=== PATIENT | male | born 1975 | race American Indian/Alaskan Native ===

== ENCOUNTER 2018-07-12 12:44 | Emergency (ER) | payer SELFPAY ==
[2018-07-12 13:20] VITALS: BP 156/96
--- NOTE | 2018-07-12 13:20 | Emergency Department Report ---
Blank Doc - Documentation Documentation: 42 y o male presents to ED cc of left knee pain and swelling worsening with mov emet x over a year Was seen at [facility] last year [facility] HTN: not on medication, ran out knee xray [facility] eval
--- NOTE | 2018-07-12 14:18 | Emergency Department Report ---
ED Extremity Problem HPI - General Chief complaint: Extremity Problem,Nontraumatic Stated complaint: (L) KNEE PAIN Time Seen by Provider: 07/12/18 13:17 Source: family Mode of arrival: Ambulatory Limitations: No Limitations - History of Present Illness Initial comments: 42-year-old -[place] male presents to the emergency room complaint of left knee pain and swelling 6-7 years. Patient reports that in the last year he has gotten worse. Patient reports that he is he follows up at [facility]. Patient also reports a history of hypertension and is draining out of his medication but not able to identify what medication he is on. Patient reports that he gets his medications [facility]. Patient denies any recent traumas no chest pain or shortness of breathing no headaches. Onset/Timin -: year(s) Location: left, knee History of Same: Yes -: Yes arthralgia Radiation: none Severity scale (0 -10): 10 Quality: aching Consistency: intermittent Improves with: medication Worsens with: weight bearing Associated Symptoms: denies other symptoms. denies: chest pain, shortness of breath, fever - Related Data Allergies Allergy/AdvReac Type Severity Reaction Status Date / Time No Known Allergies Allergy Verified 07/12/18 12:46 ED Review of Systems ROS: Stated complaint: (L) KNEE PAIN Other details as noted in HPI Comment: All other systems reviewed and negative ED Past Medical Hx - Past Medical History Previous Medical History?: Yes Hx Hypertension: Yes - Surgical History Past Surgical History?: No - Social History Smoking Status: Never Smoker Substance Use Type: None ED Physical Exam - General Limitations: No Limitations General appearance: alert, in no apparent distress - Head Head exam: Present: atraumatic, normocephalic - Eye Eye exam: Present: normal appearance - ENT ENT exam: Present: mucous membranes moist - Neck Neck exam: Present: normal inspection - Respiratory Respiratory exam: Present: normal lung sounds bilaterally. Absent: respiratory distress - Cardiovascular Cardiovascular Exam: Present: regular rate, normal rhythm. Absent: systolic murmur, diastolic murmur, rubs, gallop - Expanded Lower Extremity Exam Left Hip exam: Present: full ROM. Absent: tenderness Upper Leg exam: Present: normal inspection, full ROM. Absent: tenderness Knee exam: Present: full ROM, swelling. Absent: tenderness, abrasion, laceration, deformity, erythema Lower Leg exam: Present: normal inspection, full ROM Foot/Toe exam: Present: full ROM, swelling Neuro vascular tendon exam: Present: no vascular compromise - Neurological Exam Neurological exam: Present: alert, oriented X3 - Psychiatric Psychiatric exam: Present: normal affect, normal mood - Skin Skin exam: Present: warm, dry, intact, normal color. Absent: rash ED Course Vital Signs 07/12/18 13:17 Temperature 98.3 F Pulse Rate 64 Respiratory 16 Rate Blood Pressure 156/96 O2 Sat by Pulse 98 Oximetry ED Medical Decision Making - Medical Decision Making 42-year-old male comes in for chronic left knee pain and swelling for 6-7 years. Patient usually follows up with bradycardia. Patient has not taken anything for pain. Discussed the patient to follow up with orthopedic provider or primary care provider for pain management. Critical care attestation.: If time is entered above; I have spent that time in minutes in the direct care of this critically ill patient, excluding procedure time. ED Disposition Clinical Impression: Chronic pain of left knee Hypertension Qualifiers: Hypertension type: essential hypertension Qualified Code(s): I10 - Essential (primary) hypertension Disposition: DC- TO HOME OR SELFCARE Is pt being admited?: No Does the pt Need Aspirin: No Condition: Stable Instructions: Hypertension (ED), Arthralgia (ED) Additional Instructions: Please follow up with her primary care provider and/or pain clinic to be evaluated for your chronic knee pain and hypertension. I have listed their information below for your convenience. Referrals: [facility] [Provider Group] - 3-5 Days PAIN CARE, [facility] [Provider Group] - 3-5 Days
--- NOTE | 2018-07-12 14:18 | XRay Report ---
LEFT KNEE, 3 views: History: Pain and swelling. Findings: Moderate tricompartmental osteoarthritic changes are identified. The lateral compartment is most affected. No evidence for fracture or bone lesion. A moderate to large joint effusion is noted on the lateral view. IMPRESSION: Moderate osteoarthritis. Joint effusion. No acute process is noted.
== END 2018-07-12 14:35 | disposition home or self-care (01) ==
LOC: ED 12:44
DX: G89.29 Other chronic pain (principal); M25.562 Pain in left knee; I10 Essential (primary) hypertension